=== PATIENT | male | born 1955 | race African-American/Black ===

== ENCOUNTER 2022-11-27 08:41 | Day surgery (SDC) | payer MEDICARE ==
[2022-11-27 09:04] LABS: Red Blood Cell (RBC) Count 4.59 mill/uL (4.70-6.10); White Blood Cell (WBC) Count 4.4 10x3/uL (4.8-10.8)
[2022-11-27 09:05] LABS: #Monocytes 0.6 thou/uL (0.11-0.59); #Neutrophils 2.7 thou/uL (1.40-6.50); %Basophils 0.5 % (0.0-1.0); %Eosinophils 0.5 % (0.0-10.0); %Lymphocytes 25.7 % (21.0-51.0); %Monocytes 12.5 % (0.0-10.0); %Neutrophils 60.8 % (42.0-75.0); Mean Corpuscular HGB CONC 33.7 g/dL (32.0-36.0); Mean Corpuscular Hemoglobin 30.5 pg (27.0-31.0); Mean Corpuscular Volume 90.6 fl (78.0-98.0); Mean Platelet Volume 8.9 fL (7.4-10.4); Platelet Count 354 10x3/uL (130-400)
[2022-11-27 09:09] LABS: Prothrombin Time 13.8 sec (12.0-14.7)
[2022-11-27 09:31] VITALS: TEMP 96.7; BMI 18.5
== END 2022-11-27 10:00 | disposition home or self-care (01) ==
LOC: CT 08:41
PROVIDERS: ATTEND Internal Medicine
DX: Z12.5 Encounter for screening for malignant neoplasm of prostate (principal); Z53.9 Procedure and treatment not carried out, unspecified reason; C25.3 Malignant neoplasm of pancreatic duct; C64.1 Malignant neoplasm of right kidney, except renal pelvis; I10 Essential (primary) hypertension; R97.8 Other abnormal tumor markers; R91.1 Solitary pulmonary nodule
CPT/HCPCS: 85025; 85610; 85730

== ENCOUNTER → 2022-12-14 | Day surgery (SDC) | payer MEDICARE ==
[2022-12-14 09:00] VITALS: BP 153/82; TEMP 97.6
== END ==
LOC: CT 08:16
PROVIDERS: ATTEND Internal Medicine
DX: C25.3 Malignant neoplasm of pancreatic duct (principal); C64.1 Malignant neoplasm of right kidney, except renal pelvis; R97.8 Other abnormal tumor markers; Z12.5 Encounter for screening for malignant neoplasm of prostate
CPT/HCPCS: 50200; 77002; 88305; 88333

== ENCOUNTER 2023-01-02 07:52 | Day surgery (SDC) | payer MEDICARE ==
[2023-01-01 09:54] VITALS: BMI 16.8
[2023-01-02] MEDS ORDERED: Lidocaine 1% PF 5 ML VIAL ONE (09:17)
[2023-01-02] MEDS ORDERED: PROPOFOL 200 MG/20 ML VIAL ONE (09:17)
[2023-01-02] MEDS ORDERED: PHENYLEPHRINE-NS 100 MCG/ML 10 ML SYRINGE ONE (09:17)
== END 2023-01-02 11:00 | disposition home or self-care (01) ==
LOC: SDC 07:52
PROVIDERS: ATTEND Internal Medicine Gastroenterology
PROC: 0DBM8ZZ Excision of Descending Colon, Via Natural or Artificial Opening Endoscopic (ICD-10-PCS; principal; 2023-01-02)
PROC: 0DBL8ZZ Excision of Transverse Colon, Via Natural or Artificial Opening Endoscopic (ICD-10-PCS; 2023-01-02)
PROC: 0DBN8ZZ Excision of Sigmoid Colon, Via Natural or Artificial Opening Endoscopic (ICD-10-PCS; 2023-01-02)
DX: D12.3 Benign neoplasm of transverse colon (principal); D12.4 Benign neoplasm of descending colon; D12.5 Benign neoplasm of sigmoid colon; D12.7 Benign neoplasm of rectosigmoid junction; C25.9 Malignant neoplasm of pancreas, unspecified; I10 Essential (primary) hypertension; C64.9 Malignant neoplasm of unspecified kidney, except renal pelvis; D3A.090 Benign carcinoid tumor of the bronchus and lung; Z79.899 Other long term (current) drug therapy
CPT/HCPCS: 88305; J2704

== ENCOUNTER 2023-02-14 13:33 | Day surgery (SDC) | payer MEDICARE ==
[2023-02-14] MEDS ORDERED: diphenhydrAMINE 25 MG CAP PO SCH (14:00)
[2023-02-14] MEDS ORDERED: Acetaminophen 500 MG TAB PO SCH (14:00)
[2023-02-14] MEDS ORDERED: diphenhydrAMINE 25 MG CAP ONE (14:19)
[2023-02-14] MEDS ORDERED: Acetaminophen 500 MG TAB ONE (14:19)
[2023-02-14 17:26] VITALS: BP 159/79; TEMP 97.9
== END 2023-02-14 17:25 | disposition home or self-care (01) ==
LOC: ONC/OP 13:33
PROVIDERS: ATTEND Internal Medicine
DX: D64.9 Anemia, unspecified (principal); D69.6 Thrombocytopenia, unspecified
CPT/HCPCS: 36430; 86850; 86900; 86901; 86920; P9016; J1642

== ENCOUNTER 2023-03-29 09:58 | Outpatient (CLI) | payer MEDICARE ==
[2023-03-29] MEDS ORDERED: Iopamidol 370 76% 100 ML VIAL ONE (14:05)
== END 2023-03-29 09:59 | disposition home or self-care (01) ==
LOC: BICCT 09:58
PROVIDERS: ATTEND Internal Medicine
DX: C25.3 Malignant neoplasm of pancreatic duct (principal); N28.89 Other specified disorders of kidney and ureter; K76.9 Liver disease, unspecified; J98.09 Other diseases of bronchus, not elsewhere classified; R91.8 Other nonspecific abnormal finding of lung field
CPT/HCPCS: 71260

== ENCOUNTER 2023-06-22 21:07 | Inpatient (IN) | payer MEDICARE ==
[2023-06-23] MEDS ORDERED: Dextrose 10% in Water 1,000 ML IV SCH (01:15)
[2023-06-23] MEDS ORDERED: Acetaminophen 650 MG Suppository PR PRN (01:16)
[2023-06-23] MEDS ORDERED: Ondansetron ODT 4 MG TAB PO PRN (01:16)
[2023-06-23] MEDS ORDERED: Ondansetron PF 4 MG/2 ML Vial IVP PRN (01:16)
[2023-06-23] MEDS ORDERED: Dextrose 50% Abboject 50 ML SYRINGE SLOW IVP SCH (01:30)
[2023-06-23 03:04] VITALS: BMI 14.9
[2023-06-23] MEDS ORDERED: Glucagon 1 MG/ML KIT IM PRN (03:55)
[2023-06-23] MEDS ORDERED: Dextrose 50% Abboject 50 ML SYRINGE SLOW IVP PRN (03:55)
[2023-06-23] MEDS ORDERED: Dextrose 5% in Water 1,000 ML IV PRN (03:55)
[2023-06-23] MEDS ORDERED: Electrolyte Replacement Protocol 1 EACH FS PRN (04:15)
[2023-06-23] MEDS: Sodium Chloride 0.9% 1,000 ML IV SCH ×2 (05:45→14:43)
[2023-06-23 06:44] LABS: #Monocytes 0.3 thou/uL (0.11-0.59); #Neutrophils 13.9 thou/uL (1.40-6.50); %Basophils 0.1 % (0.0-1.0); %Lymphocytes 2.2 % (21.0-51.0); Hematocrit 22.5 % (42.0-52.0); Hemoglobin 7.6 g/dL (14.0-18.0); Mean Corpuscular HGB CONC 33.8 g/dL (32.0-36.0); Mean Corpuscular Hemoglobin 34.2 pg (27.0-31.0); Mean Corpuscular Volume 101.4 fl (78.0-98.0); Mean Platelet Volume 12.2 fL (7.4-10.4); Red Blood Cell (RBC) Count 2.22 mill/uL (4.70-6.10); White Blood Cell (WBC) Count 14.8 10x3/uL (4.8-10.8)
[2023-06-23 07:06] LABS: Anion Gap 13 mmol/L (10-20); BUN (Urea Nitrogen) 51 mg/dL (8.4-25.7); Calc. Creatinine Clearance 72 mL/min (70-130); Calcium 7.5 mg/dL (7.8-10.44); Carbon Dioxide 21 mmol/L (23-31); Chloride 98 mmol/L (98-107); Estimated GFR 100; Glucose 139 mg/dL (80-115); Potassium 3.9 mmol/L (3.5-5.1); Sodium 128 mmol/L (136-145)
[2023-06-23 07:09] LABS: Magnesium 1.7 mg/dL (1.6-2.6); Phosphorus 3.2 mg/dL (2.3-4.7)
[2023-06-23] MEDS ORDERED: hydrALAZINE 20 MG/ML VIAL SLOW IVP PRN (08:14)
[2023-06-23 08:18] LABS: Platelet Count 49 10x3/uL (130-400)
[2023-06-23] MEDS ORDERED: Enoxaparin 40 MG (0.4 mL) SYRINGE SC SCH (09:00)
[2023-06-23] MEDS ORDERED: Aspirin 81 mg Enteric Coated Tablet PO SCH (09:00)
[2023-06-23] MEDS ORDERED: Losartan 25 MG TAB PO SCH (09:00)
[2023-06-23] MEDS ORDERED: Magnesium 2 GM/50 ML(in water) 2 GM in Premix 1 BAG IVPB SCH (10:15)
[2023-06-23] MEDS: Rosuvastatin 20 MG TAB PO SCH (22:24)
[2023-06-24 07:14] LABS: Anion Gap 12 mmol/L (10-20); BUN (Urea Nitrogen) 30 mg/dL (8.4-25.7); Calc. Creatinine Clearance 102 mL/min (70-130); Calcium 7.3 mg/dL (7.8-10.44); Carbon Dioxide 19 mmol/L (23-31); Chloride 103 mmol/L (98-107); Estimated GFR 111; Glucose 78 mg/dL (80-115); Magnesium 1.8 mg/dL (1.6-2.6); Potassium 3.8 mmol/L (3.5-5.1); Sodium 130 mmol/L (136-145)
[2023-06-24 07:37] LABS: #Basophils 0.1 thou/uL (0.0-0.2); #Monocytes 0.3 thou/uL (0.11-0.59); #Neutrophils 17.8 thou/uL (1.40-6.50); %Basophils 0.3 % (0.0-1.0); %Eosinophils 0.1 % (0.0-10.0); %Lymphocytes 2.3 % (21.0-51.0); %Monocytes 1.6 % (0.0-10.0); %Neutrophils 94.6 % (42.0-75.0); Mean Corpuscular HGB CONC 32.9 g/dL (32.0-36.0); Mean Corpuscular Hemoglobin 33.6 pg (27.0-31.0); Mean Corpuscular Volume 102.3 fl (78.0-98.0); Mean Platelet Volume 11.9 fL (7.4-10.4); RBC Distribution Width 14.4 % (11.5-14.5); Red Blood Cell (RBC) Count 3.45 mill/uL (4.70-6.10); White Blood Cell (WBC) Count 18.9 10x3/uL (4.8-10.8)
[2023-06-24 07:45] LABS: Platelet Count 32 10x3/uL (130-400)
[2023-06-24 08:00] LABS: Hematocrit 35.3 % (42.0-52.0); Hemoglobin 11.6 g/dL (14.0-18.0)
[2023-06-24] MEDS ORDERED: Magnesium 2 GM/50 ML(in water) 2 GM in Premix 1 BAG IVPB SCH (08:15)
[2023-06-24] MEDS: Dextrose 5%-Lactated Ringers 1,000 ML IV SCH (15:05)
[2023-06-24] MEDS: Cefepime 2 GM in Sodium Chloride 0.9% 100 ML IVPB SCH (15:05)
[2023-06-24 17:01] LABS: Bacteria/HPF None Seen HPF (None Seen); Bilirubin Negative (Negative); Blood, Urine 1+ (Negative); CAUTI Indications for Culture Alt mental st,lethar; Clarity Clear (Clear); Glucose, Urine (Dipstick) 300 mg/dL (Negative); Ketone, Urine Negative (Negative); Leukocyte Negative Leu/uL (Negative); Nitrite Negative (Negative); Protein, Urine (Dipstick) Negative (Neg-Trace); RBC/HPF None Seen HPF (0-3); Specific Gravity, Urine 1.019 (1.002-1.036); Squamous Epithelial None Seen HPF (0-3); Urobilinogen Normal mg/dL (Less than 2); WBC/HPF 0-3 HPF (0-3); pH, Urine 5.5 (5.0-9.0)
[2023-06-24 17:03] LABS: Urine Culture Reflex No No
[2023-06-24] MEDS: Acetaminophen 325 MG TAB PO PRN (18:28)
[2023-06-24] MEDS: Rosuvastatin 20 MG TAB PO SCH (21:55)
[2023-06-25] MEDS: Cefepime 2 GM in Sodium Chloride 0.9% 100 ML IVPB SCH ×2 (03:18→16:31)
[2023-06-25 05:49] LABS: Anion Gap 13 mmol/L (10-20); BUN (Urea Nitrogen) 25 mg/dL (8.4-25.7); Calc. Creatinine Clearance 102 mL/min (70-130); Calcium 7.7 mg/dL (7.8-10.44); Carbon Dioxide 25 mmol/L (23-31); Chloride 99 mmol/L (98-107); Estimated GFR 111; Glucose 148 mg/dL (80-115); Magnesium 1.7 mg/dL (1.6-2.6); Potassium 3.3 mmol/L (3.5-5.1); Sodium 134 mmol/L (136-145)
[2023-06-25] MEDS ORDERED: Magnesium 2 GM/50 ML(in water) 2 GM in Premix 1 BAG IVPB SCH (06:00)
[2023-06-25] MEDS: Potassium Chloride 20 MEQ in Premix 1 BAG IVPB SCH ×2 (07:00→09:24)
[2023-06-25] MEDS: Dextrose 5%-Lactated Ringers 1,000 ML IV SCH ×3 (07:00→21:14)
[2023-06-25 08:26] LABS: #Monocytes 0.3 thou/uL (0.11-0.59); #Neutrophils 11.3 thou/uL (1.40-6.50); %Basophils 0.1 % (0.0-1.0); %Lymphocytes 2.7 % (21.0-51.0); %Monocytes 2.1 % (0.0-10.0); %Neutrophils 94.3 % (42.0-75.0); Mean Corpuscular HGB CONC 34.5 g/dL (32.0-36.0); Mean Corpuscular Hemoglobin 34.3 pg (27.0-31.0); Mean Corpuscular Volume 99.4 fl (78.0-98.0); Mean Platelet Volume 12.1 fL (7.4-10.4); RBC Distribution Width 13.6 % (11.5-14.5); Red Blood Cell (RBC) Count 1.78 mill/uL (4.70-6.10); White Blood Cell (WBC) Count 11.9 10x3/uL (4.8-10.8)
[2023-06-25 08:28] LABS: Platelet Count 34 10x3/uL (130-400)
[2023-06-25 08:32] LABS: Hemoglobin 6.1 g/dL (14.0-18.0)
[2023-06-25 08:33] LABS: Hematocrit 17.7 % (42.0-52.0)
[2023-06-25 15:01] LABS: #Monocytes 0.2 thou/uL (0.11-0.59); #Neutrophils 11.7 thou/uL (1.40-6.50); %Basophils 0.1 % (0.0-1.0); %Lymphocytes 2.2 % (21.0-51.0); %Monocytes 1.9 % (0.0-10.0); %Neutrophils 94.7 % (42.0-75.0); Hematocrit 22.5 % (42.0-52.0); Mean Corpuscular HGB CONC 31.1 g/dL (32.0-36.0); Mean Corpuscular Hemoglobin 33.8 pg (27.0-31.0); Mean Platelet Volume 12.7 fL (7.4-10.4); RBC Distribution Width 13.8 % (11.5-14.5); Red Blood Cell (RBC) Count 2.07 mill/uL (4.70-6.10); White Blood Cell (WBC) Count 12.4 10x3/uL (4.8-10.8)
[2023-06-25 15:08] LABS: Platelet Count 45 10x3/uL (130-400)
[2023-06-25 15:09] LABS: Mean Corpuscular Volume 108.7 fl (78.0-98.0)
[2023-06-25] MEDS ORDERED: Megestrol Acetate 400 MG/10 ML UDCUP PO SCH (16:30)
[2023-06-25] MEDS ORDERED: Megestrol Acetate 800 MG/20 ML UDCUP PO SCH (16:45)
[2023-06-25] MEDS: Rosuvastatin 20 MG TAB PO SCH (21:14)
[2023-06-25] MEDS: Mirtazapine 15 MG TAB PO SCH (21:14)
[2023-06-26] MEDS: Cefepime 2 GM in Sodium Chloride 0.9% 100 ML IVPB SCH ×2 (03:19→15:38)
[2023-06-26 06:14] LABS: #Monocytes 0.4 thou/uL (0.11-0.59); #Neutrophils 15.2 thou/uL (1.40-6.50); %Basophils 0.1 % (0.0-1.0); %Lymphocytes 2.4 % (21.0-51.0); %Monocytes 2.3 % (0.0-10.0); %Neutrophils 94.1 % (42.0-75.0); Hematocrit 22.5 % (42.0-52.0); Hemoglobin 7.7 g/dL (14.0-18.0); Mean Corpuscular HGB CONC 34.2 g/dL (32.0-36.0); Mean Corpuscular Hemoglobin 32.5 pg (27.0-31.0); Mean Platelet Volume 12.4 fL (7.4-10.4); RBC Distribution Width 16.3 % (11.5-14.5); Red Blood Cell (RBC) Count 2.37 mill/uL (4.70-6.10); White Blood Cell (WBC) Count 16.2 10x3/uL (4.8-10.8)
[2023-06-26 06:21] LABS: Mean Corpuscular Volume 94.9 fl (78.0-98.0); Platelet Count 33 10x3/uL (130-400)
[2023-06-26 06:39] LABS: ALT (SGPT) 131 U/L (8-55); AST (SGOT) 152 U/L (5-34); Albumin 2.8 g/dL (3.4-4.8); Alkaline Phosphatase 265 U/L (40-110); Anion Gap 9 mmol/L (10-20); BUN (Urea Nitrogen) 19 mg/dL (8.4-25.7); Bilirubin, Total 1.7 mg/dL (0.2-1.2); Calc. Creatinine Clearance 117 mL/min (70-130); Calcium 7.7 mg/dL (7.8-10.44); Carbon Dioxide 29 mmol/L (23-31); Chloride 100 mmol/L (98-107); Estimated GFR 115; Globulin 1.6 g/dL (2.4-3.5); Glucose 143 mg/dL (80-115); Potassium 3.6 mmol/L (3.5-5.1); Protein, Total 4.4 g/dL (5.8-8.1); Sodium 134 mmol/L (136-145)
[2023-06-26] MEDS: Megestrol Acetate 800 MG/20 ML UDCUP PO SCH (08:59)
[2023-06-26] MEDS: Cyanocobalamin (Vitamin B-12) 1,000 MCG TAB PO SCH (08:59)
[2023-06-26] MEDS ORDERED: Iopamidol 370 76% 100 ML VIAL ONE (13:12)
[2023-06-26] MEDS: Acetaminophen 325 MG TAB PO PRN (15:49)
[2023-06-26] MEDS: Dextrose 5%-Lactated Ringers 1,000 ML IV SCH (16:33)
[2023-06-26] MEDS: Mirtazapine 15 MG TAB PO SCH (21:27)
[2023-06-26] MEDS: Rosuvastatin 20 MG TAB PO SCH (21:27)
[2023-06-27] MEDS: Cefepime 2 GM in Sodium Chloride 0.9% 100 ML IVPB SCH ×2 (03:47→15:14)
[2023-06-27] MEDS: Dextrose 5%-Lactated Ringers 1,000 ML IV SCH (03:51)
[2023-06-27 06:47] LABS: #Monocytes 0.6 thou/uL (0.11-0.59); #Neutrophils 13.1 thou/uL (1.40-6.50); %Basophils 0.1 % (0.0-1.0); %Lymphocytes 3.2 % (21.0-51.0); %Monocytes 3.9 % (0.0-10.0); Hematocrit 22.4 % (42.0-52.0); Hemoglobin 7.7 g/dL (14.0-18.0); Mean Corpuscular HGB CONC 34.4 g/dL (32.0-36.0); Mean Corpuscular Hemoglobin 32.6 pg (27.0-31.0); Mean Corpuscular Volume 94.9 fl (78.0-98.0); Mean Platelet Volume 12.4 fL (7.4-10.4); RBC Distribution Width 16.2 % (11.5-14.5); Red Blood Cell (RBC) Count 2.36 mill/uL (4.70-6.10); White Blood Cell (WBC) Count 14.3 10x3/uL (4.8-10.8)
[2023-06-27 07:12] LABS: Platelet Count 31 10x3/uL (130-400)
[2023-06-27 07:16] LABS: ALT (SGPT) 104 U/L (8-55); AST (SGOT) 91 U/L (5-34); Albumin 2.6 g/dL (3.4-4.8); Alkaline Phosphatase 221 U/L (40-110); BUN (Urea Nitrogen) 14 mg/dL (8.4-25.7); Bilirubin, Total 1.6 mg/dL (0.2-1.2); Calc. Creatinine Clearance 119 mL/min (70-130); Calcium 7.5 mg/dL (7.8-10.44); Carbon Dioxide 26 mmol/L (23-31); Chloride 100 mmol/L (98-107); Estimated GFR 116; Globulin 1.7 g/dL (2.4-3.5); Glucose 103 mg/dL (80-115); Potassium 3.4 mmol/L (3.5-5.1); Protein, Total 4.3 g/dL (5.8-8.1); Sodium 133 mmol/L (136-145)
[2023-06-27 07:59] LABS: Anion Gap 10 mmol/L (10-20)
[2023-06-27] MEDS: Famotidine 20 MG TAB PO SCH (09:30)
[2023-06-27] MEDS: Megestrol Acetate 800 MG/20 ML UDCUP PO SCH (09:30)
[2023-06-27] MEDS: Cyanocobalamin (Vitamin B-12) 1,000 MCG TAB PO SCH (09:30)
[2023-06-27] MEDS: Dexamethasone 1 MG TAB PO SCH (09:30)
[2023-06-27] MEDS ORDERED: Potassium Chloride 20 MEQ TAB PO SCH (13:15)
[2023-06-27] MEDS: Mirtazapine 15 MG TAB PO SCH (20:54)
[2023-06-27] MEDS: Rosuvastatin 20 MG TAB PO SCH (20:54)
[2023-06-28 05:46] LABS: #Monocytes 0.7 thou/uL (0.11-0.59); #Neutrophils 10.9 thou/uL (1.40-6.50); %Basophils 0.1 % (0.0-1.0); %Lymphocytes 2.9 % (21.0-51.0); %Monocytes 5.9 % (0.0-10.0); %Neutrophils 90.5 % (42.0-75.0); Hematocrit 18.7 % (42.0-52.0); Hemoglobin 6.4 g/dL (14.0-18.0); Mean Corpuscular HGB CONC 34.2 g/dL (32.0-36.0); Mean Corpuscular Hemoglobin 32.7 pg (27.0-31.0); Mean Corpuscular Volume 95.4 fl (78.0-98.0); Mean Platelet Volume 12.5 fL (7.4-10.4); RBC Distribution Width 15.7 % (11.5-14.5); Red Blood Cell (RBC) Count 1.96 mill/uL (4.70-6.10)
[2023-06-28 05:59] LABS: Platelet Count 33 10x3/uL (130-400)
[2023-06-28 06:03] LABS: ALT (SGPT) 95 U/L (8-55); AST (SGOT) 83 U/L (5-34); Albumin 2.6 g/dL (3.4-4.8); Alkaline Phosphatase 192 U/L (40-110); Anion Gap 6 mmol/L (10-20); BUN (Urea Nitrogen) 13 mg/dL (8.4-25.7); Bilirubin, Total 1.3 mg/dL (0.2-1.2); Calc. Creatinine Clearance 125 mL/min (70-130); Calcium 7.5 mg/dL (7.8-10.44); Carbon Dioxide 31 mmol/L (23-31); Chloride 98 mmol/L (98-107); Estimated GFR 118; Globulin 1.8 g/dL (2.4-3.5); Glucose 92 mg/dL (80-115); Potassium 4.1 mmol/L (3.5-5.1); Protein, Total 4.4 g/dL (5.8-8.1); Sodium 131 mmol/L (136-145)
[2023-06-28] MEDS: Megestrol Acetate 800 MG/20 ML UDCUP PO SCH (09:36)
[2023-06-28] MEDS: Cyanocobalamin (Vitamin B-12) 1,000 MCG TAB PO SCH (09:36)
[2023-06-28] MEDS: Famotidine 20 MG TAB PO SCH (09:36)
[2023-06-28] MEDS: Dexamethasone 1 MG TAB PO SCH (09:36)
[2023-06-28] MEDS: Rosuvastatin 20 MG TAB PO SCH (21:32)
[2023-06-28] MEDS: Mirtazapine 15 MG TAB PO SCH (21:32)
[2023-06-29 08:18] LABS: Hematocrit 28.5 % (42.0-52.0); Hemoglobin 9.6 g/dL (14.0-18.0)
[2023-06-29] MEDS: Cyanocobalamin (Vitamin B-12) 1,000 MCG TAB PO SCH (09:20)
[2023-06-29] MEDS: Dexamethasone 1 MG TAB PO SCH (09:20)
[2023-06-29] MEDS: Megestrol Acetate 800 MG/20 ML UDCUP PO SCH (09:20)
[2023-06-29] MEDS: Famotidine 20 MG TAB PO SCH (09:20)
[2023-06-29 14:38] LABS: Anion Gap 12 mmol/L (10-20); BUN (Urea Nitrogen) 15 mg/dL (8.4-25.7); Calc. Creatinine Clearance 119 mL/min (70-130); Calcium 7.6 mg/dL (7.8-10.44); Carbon Dioxide 23 mmol/L (23-31); Chloride 97 mmol/L (98-107); Estimated GFR 116; Glucose 126 mg/dL (80-115); Potassium 5.1 mmol/L (3.5-5.1); Sodium 127 mmol/L (136-145)
[2023-06-29] MEDS ORDERED: Sodium Chloride 0.9% 1,000 ML IV SCH (15:30)
[2023-06-29] MEDS: Acetaminophen 325 MG TAB PO PRN ×2 (17:14→21:14)
[2023-06-29] MEDS: Rosuvastatin 20 MG TAB PO SCH (21:13)
[2023-06-29] MEDS: Mirtazapine 15 MG TAB PO SCH (21:15)
[2023-06-30] MEDS: Dexamethasone 1 MG TAB PO SCH (08:26)
[2023-06-30] MEDS: Megestrol Acetate 800 MG/20 ML UDCUP PO SCH (08:26)
[2023-06-30] MEDS: Famotidine 20 MG TAB PO SCH (08:27)
[2023-06-30] MEDS: Cyanocobalamin (Vitamin B-12) 1,000 MCG TAB PO SCH (08:27)
[2023-06-30 09:57] LABS: #Monocytes 0.9 thou/uL (0.11-0.59); #Neutrophils 8.5 thou/uL (1.40-6.50); %Basophils 0.1 % (0.0-1.0); %Lymphocytes 4.6 % (21.0-51.0); %Monocytes 8.9 % (0.0-10.0); %Neutrophils 85.8 % (42.0-75.0); Hematocrit 32.8 % (42.0-52.0); Hemoglobin 10.8 g/dL (14.0-18.0); Mean Corpuscular HGB CONC 32.9 g/dL (32.0-36.0); Mean Corpuscular Hemoglobin 31.4 pg (27.0-31.0); Mean Corpuscular Volume 95.3 fl (78.0-98.0); RBC Distribution Width 16.6 % (11.5-14.5); Red Blood Cell (RBC) Count 3.44 mill/uL (4.70-6.10); White Blood Cell (WBC) Count 9.9 10x3/uL (4.8-10.8)
[2023-06-30 10:09] LABS: Platelet Count 48 10x3/uL (130-400)
[2023-06-30 10:32] LABS: Anion Gap 12 mmol/L (10-20); BUN (Urea Nitrogen) 13 mg/dL (8.4-25.7); Calc. Creatinine Clearance 125 mL/min (70-130); Calcium 7.6 mg/dL (7.8-10.44); Carbon Dioxide 24 mmol/L (23-31); Chloride 96 mmol/L (98-107); Estimated GFR 118; Glucose 83 mg/dL (80-115); Potassium 4.8 mmol/L (3.5-5.1); Sodium 127 mmol/L (136-145)
[2023-06-30 11:42] LABS: Anion Gap 10 mmol/L (10-20); BUN (Urea Nitrogen) 14 mg/dL (8.4-25.7); Calc. Creatinine Clearance 119 mL/min (70-130); Calcium 7.6 mg/dL (7.8-10.44); Carbon Dioxide 27 mmol/L (23-31); Chloride 93 mmol/L (98-107); Estimated GFR 116; Glucose 99 mg/dL (80-115); Potassium 4.4 mmol/L (3.5-5.1); Sodium 126 mmol/L (136-145)
[2023-06-30] MEDS: Acetaminophen 325 MG TAB PO PRN (18:09)
[2023-06-30] MEDS: Rosuvastatin 20 MG TAB PO SCH (21:08)
[2023-06-30] MEDS: Mirtazapine 15 MG TAB PO SCH (21:08)
[2023-07-01] MEDS ORDERED: Benzonatate 100 MG CAP PO PRN (01:22)
[2023-07-01] MEDS ORDERED: GUAIFENESIN SF SOLN 200 MG/10 ML UDCUP PO PRN (01:22)
[2023-07-01 06:35] LABS: #Neutrophils 10.6 thou/uL (1.40-6.50); %Basophils 0.2 % (0.0-1.0); %Lymphocytes 4.2 % (21.0-51.0); %Monocytes 7.9 % (0.0-10.0); %Neutrophils 87.3 % (42.0-75.0); Hematocrit 28.9 % (42.0-52.0); Hemoglobin 10.1 g/dL (14.0-18.0); Mean Corpuscular HGB CONC 34.9 g/dL (32.0-36.0); Mean Corpuscular Hemoglobin 31.8 pg (27.0-31.0); Mean Platelet Volume 11.1 fL (7.4-10.4); RBC Distribution Width 15.8 % (11.5-14.5); Red Blood Cell (RBC) Count 3.18 mill/uL (4.70-6.10); White Blood Cell (WBC) Count 12.1 10x3/uL (4.8-10.8)
[2023-07-01 06:39] LABS: Mean Corpuscular Volume 90.9 fl (78.0-98.0); Platelet Count 65 10x3/uL (130-400)
[2023-07-01 06:49] LABS: ALT (SGPT) 85 U/L (8-55); AST (SGOT) 66 U/L (5-34); Albumin 2.6 g/dL (3.4-4.8); Alkaline Phosphatase 170 U/L (40-110); Anion Gap 8 mmol/L (10-20); BUN (Urea Nitrogen) 31 mg/dL (8.4-25.7); Bilirubin, Total 0.9 mg/dL (0.2-1.2); Calc. Creatinine Clearance 125 mL/min (70-130); Calcium 7.8 mg/dL (7.8-10.44); Carbon Dioxide 28 mmol/L (23-31); Chloride 94 mmol/L (98-107); Estimated GFR 118; Globulin 2.1 g/dL (2.4-3.5); Glucose 118 mg/dL (80-115); Potassium 4.5 mmol/L (3.5-5.1); Protein, Total 4.7 g/dL (5.8-8.1); Sodium 125 mmol/L (136-145)
[2023-07-01] MEDS: Dexamethasone 1 MG TAB PO SCH (08:56)
[2023-07-01] MEDS: Famotidine 20 MG TAB PO SCH (08:56)
[2023-07-01] MEDS: Cyanocobalamin (Vitamin B-12) 1,000 MCG TAB PO SCH (08:56)
[2023-07-01] MEDS: Megestrol Acetate 800 MG/20 ML UDCUP PO SCH (08:56)
[2023-07-01 19:37] LABS: Anion Gap 8 mmol/L (10-20); BUN (Urea Nitrogen) 20 mg/dL (8.4-25.7); Calc. Creatinine Clearance 134 mL/min (70-130); Calcium 7.7 mg/dL (7.8-10.44); Carbon Dioxide 28 mmol/L (23-31); Chloride 92 mmol/L (98-107); Estimated GFR 120; Glucose 91 mg/dL (80-115); Potassium 4.1 mmol/L (3.5-5.1); Sodium 124 mmol/L (136-145)
[2023-07-01] MEDS: Mirtazapine 15 MG TAB PO SCH (20:13)
[2023-07-01] MEDS: Rosuvastatin 20 MG TAB PO SCH (20:13)
[2023-07-01] MEDS: Sodium Chloride 1 GM TAB PO SCH (21:49)
[2023-07-02 05:32] LABS: #Monocytes 0.9 thou/uL (0.11-0.59); #Neutrophils 9.4 thou/uL (1.40-6.50); %Basophils 0.1 % (0.0-1.0); %Lymphocytes 3.6 % (21.0-51.0); %Monocytes 8.2 % (0.0-10.0); %Neutrophils 87.8 % (42.0-75.0); Hemoglobin 9.6 g/dL (14.0-18.0); Mean Corpuscular HGB CONC 34.3 g/dL (32.0-36.0); Mean Corpuscular Hemoglobin 30.6 pg (27.0-31.0); Mean Corpuscular Volume 89.2 fl (78.0-98.0); Mean Platelet Volume 11.2 fL (7.4-10.4); RBC Distribution Width 15.3 % (11.5-14.5); Red Blood Cell (RBC) Count 3.14 mill/uL (4.70-6.10); White Blood Cell (WBC) Count 10.7 10x3/uL (4.8-10.8)
[2023-07-02 05:39] LABS: Platelet Count 70 10x3/uL (130-400)
[2023-07-02 05:59] LABS: ALT (SGPT) 79 U/L (8-55); AST (SGOT) 55 U/L (5-34); Albumin 2.6 g/dL (3.4-4.8); Alkaline Phosphatase 161 U/L (40-110); Anion Gap 9 mmol/L (10-20); BUN (Urea Nitrogen) 22 mg/dL (8.4-25.7); Bilirubin, Total 0.6 mg/dL (0.2-1.2); Calc. Creatinine Clearance 108 mL/min (70-130); Calcium 7.7 mg/dL (7.8-10.44); Carbon Dioxide 27 mmol/L (23-31); Chloride 93 mmol/L (98-107); Estimated GFR 113; Globulin 2.1 g/dL (2.4-3.5); Glucose 121 mg/dL (80-115); Potassium 4.1 mmol/L (3.5-5.1); Protein, Total 4.7 g/dL (5.8-8.1); Sodium 125 mmol/L (136-145)
[2023-07-02] MEDS: Cyanocobalamin (Vitamin B-12) 1,000 MCG TAB PO SCH (09:17)
[2023-07-02] MEDS: Dexamethasone 1 MG TAB PO SCH (09:17)
[2023-07-02] MEDS: Sodium Chloride 1 GM TAB PO SCH ×3 (09:17→20:06)
[2023-07-02] MEDS: Megestrol Acetate 800 MG/20 ML UDCUP PO SCH (09:18)
[2023-07-02] MEDS: Famotidine 20 MG TAB PO SCH ×2 (09:18→20:06)
[2023-07-02] MEDS: Acetaminophen 325 MG TAB PO PRN ×2 (15:35→20:07)
[2023-07-02] MEDS: Mirtazapine 15 MG TAB PO SCH (20:06)
[2023-07-02] MEDS: Rosuvastatin 20 MG TAB PO SCH (20:06)
[2023-07-03] MEDS: Megestrol Acetate 800 MG/20 ML UDCUP PO SCH (08:10)
[2023-07-03] MEDS: Famotidine 20 MG TAB PO SCH (08:10)
[2023-07-03] MEDS: Sodium Chloride 1 GM TAB PO SCH (08:10)
[2023-07-03] MEDS: Cyanocobalamin (Vitamin B-12) 1,000 MCG TAB PO SCH (08:10)
[2023-07-03] MEDS: Dexamethasone 1 MG TAB PO SCH (08:10)
[2023-07-03 09:24] LABS: #Neutrophils 9.5 thou/uL (1.40-6.50); %Basophils 0.1 % (0.0-1.0); %Eosinophils 0.2 % (0.0-10.0); %Monocytes 9.1 % (0.0-10.0); %Neutrophils 86.8 % (42.0-75.0); Hematocrit 25.5 % (42.0-52.0); Hemoglobin 8.8 g/dL (14.0-18.0); Mean Corpuscular HGB CONC 34.5 g/dL (32.0-36.0); Mean Corpuscular Hemoglobin 31.3 pg (27.0-31.0); Mean Corpuscular Volume 90.7 fl (78.0-98.0); Mean Platelet Volume 11.2 fL (7.4-10.4); RBC Distribution Width 15.3 % (11.5-14.5); Red Blood Cell (RBC) Count 2.81 mill/uL (4.70-6.10)
[2023-07-03 09:31] LABS: Platelet Count 76 10x3/uL (130-400)
[2023-07-03 10:01] LABS: ALT (SGPT) 107 U/L (8-55); AST (SGOT) 89 U/L (5-34); Albumin 2.6 g/dL (3.4-4.8); Alkaline Phosphatase 149 U/L (40-110); Anion Gap 10 mmol/L (10-20); BUN (Urea Nitrogen) 15 mg/dL (8.4-25.7); Bilirubin, Total 0.5 mg/dL (0.2-1.2); Calc. Creatinine Clearance 125 mL/min (70-130); Calcium 7.5 mg/dL (7.8-10.44); Carbon Dioxide 26 mmol/L (23-31); Chloride 94 mmol/L (98-107); Estimated GFR 118; Glucose 153 mg/dL (80-115); Magnesium 1.2 mg/dL (1.6-2.6); Potassium 3.7 mmol/L (3.5-5.1); Protein, Total 4.6 g/dL (5.8-8.1); Sodium 126 mmol/L (136-145)
[2023-07-03 10:06] LABS: Critical Call Chemistry NUR.KAE AT 1005; Phosphorus 1.3 mg/dL (2.3-4.7)
[2023-07-03] MEDS ORDERED: PHOS-NAK 1 PKT PACK PER TUBE SCH (11:00)
[2023-07-03] MEDS ORDERED: Magnesium Sulfate In Water 4 GM in Premix 1 BAG IVPB SCH (11:00)
[2023-07-03 12:28] VITALS: BP 99/72; TEMP 98.1
[2023-07-03] MEDS ORDERED: Sodium Chloride 1 GM TAB PO SCH ×2 (15:45→21:00)
[2023-07-03] MEDS ORDERED: Potassium Phosphate 30 MMOL in Sodium Chloride 0.9% 250 ML 250 ML IVPB SCH (15:45)
== END 2023-07-03 16:21 | disposition left against medical advice (07) | DRG 640 ==
LOC: MSONC 23:14 → OBSVTOIN 06-24 14:00
PROVIDERS: ADMIT Student in an Organized Health Care Education/Training Program; ATTEND Family Medicine
PROC: 30233N1 Transfusion of Nonautologous Red Blood Cells into Peripheral Vein, Percutaneous Approach (ICD-10-PCS; principal; 2023-06-25)
DX: E16.2 Hypoglycemia, unspecified (principal); E43 Unspecified severe protein-calorie malnutrition; E22.2 Syndrome of inappropriate secretion of antidiuretic hormone; C25.9 Malignant neoplasm of pancreas, unspecified; C78.7 Secondary malignant neoplasm of liver and intrahepatic bile duct; R64 Cachexia; Z68.1 Body mass index [BMI] 19.9 or less, adult; C64.9 Malignant neoplasm of unspecified kidney, except renal pelvis; R53.1 Weakness; Z66 Do not resuscitate; Z51.5 Encounter for palliative care; E78.5 Hyperlipidemia, unspecified; I10 Essential (primary) hypertension; D64.9 Anemia, unspecified; D69.6 Thrombocytopenia, unspecified; D72.829 Elevated white blood cell count, unspecified; D3A.090 Benign carcinoid tumor of the bronchus and lung; D69.59 Other secondary thrombocytopenia; T45.1X5A Adverse effect of antineoplastic and immunosuppressive drugs, initial encounter; E83.42 Hypomagnesemia; E87.6 Hypokalemia; R53.81 Other malaise; Z79.82 Long term (current) use of aspirin; Z79.899 Other long term (current) drug therapy; Z98.890 Other specified postprocedural states; Z87.891 Personal history of nicotine dependence
CPT/HCPCS: 36415; 36416; 36430; 71260; 74018; 80048; 80053; 81001; 82533; 83735; 83930; 83935; 84100; 84443; 85014; 85018; 85025; 86850; 86900; 86901; 87040; 96365; 96375; 96376; G0378; J0692; J1642; J3475; J3480; J3490; J7050; J7999; J8540; P9016; Q9967

== ENCOUNTER 2023-07-05 21:54 | Inpatient (IN) | payer MEDICARE ==
[2023-07-05] MEDS ORDERED: Acetaminophen 650 MG Suppository PR PRN (23:24)
[2023-07-05] MEDS ORDERED: Acetaminophen 325 MG TAB PO PRN (23:24)
[2023-07-05] MEDS ORDERED: Glucagon 1 MG/ML KIT IM PRN (23:30)
[2023-07-05] MEDS ORDERED: Dextrose 50% Abboject 50 ML SYRINGE SLOW IVP PRN (23:30)
[2023-07-05] MEDS ORDERED: Dextrose 5% in Water 1,000 ML IV PRN (23:30)
[2023-07-05] MEDS: Dextrose 5%-Lactated Ringers 1,000 ML IV SCH (23:56)
[2023-07-06 01:22] VITALS: BMI 16.8
[2023-07-06 02:00] LABS: ALT (SGPT) 77 U/L (8-55); AST (SGOT) 51 U/L (5-34); Albumin 2.4 g/dL (3.4-4.8); Alkaline Phosphatase 124 U/L (40-110); Anion Gap 12 mmol/L (10-20); BUN (Urea Nitrogen) 14 mg/dL (8.4-25.7); Bilirubin, Total 0.6 mg/dL (0.2-1.2); Calc. Creatinine Clearance 138 mL/min (70-130); Calcium 7.2 mg/dL (7.8-10.44); Carbon Dioxide 22 mmol/L (23-31); Chloride 94 mmol/L (98-107); Estimated GFR 117; Glucose 80 mg/dL (80-115); Magnesium 1.6 mg/dL (1.6-2.6); Phosphorus 2.6 mg/dL (2.3-4.7); Potassium 4.5 mmol/L (3.5-5.1); Protein, Total 4.4 g/dL (5.8-8.1); Sodium 123 mmol/L (136-145)
[2023-07-06 07:03] LABS: #Eosinphils 0.1 thou/uL (0.0-0.7); #Monocytes 0.7 thou/uL (0.11-0.59); #Neutrophils 7.3 thou/uL (1.40-6.50); %Basophils 0.1 % (0.0-1.0); %Eosinophils 0.8 % (0.0-10.0); %Lymphocytes 4.8 % (21.0-51.0); %Monocytes 7.6 % (0.0-10.0); %Neutrophils 85.4 % (42.0-75.0); Hematocrit 26.4 % (42.0-52.0); Hemoglobin 8.8 g/dL (14.0-18.0); Mean Corpuscular HGB CONC 33.3 g/dL (32.0-36.0); Mean Corpuscular Hemoglobin 30.7 pg (27.0-31.0); Platelet Count 110 10x3/uL (130-400); RBC Distribution Width 15.6 % (11.5-14.5); Red Blood Cell (RBC) Count 2.87 mill/uL (4.70-6.10); White Blood Cell (WBC) Count 8.6 10x3/uL (4.8-10.8)
[2023-07-06 07:48] LABS: ALT (SGPT) 76 U/L (8-55); AST (SGOT) 55 U/L (5-34); Albumin 2.3 g/dL (3.4-4.8); Alkaline Phosphatase 126 U/L (40-110); Anion Gap 14 mmol/L (10-20); BUN (Urea Nitrogen) 12 mg/dL (8.4-25.7); Bilirubin, Total 0.7 mg/dL (0.2-1.2); Calc. Creatinine Clearance 141 mL/min (70-130); Calcium 7.2 mg/dL (7.8-10.44); Carbon Dioxide 20 mmol/L (23-31); Chloride 94 mmol/L (98-107); Estimated GFR 118; Globulin 2.2 g/dL (2.4-3.5); Glucose 77 mg/dL (80-115); Magnesium 1.6 mg/dL (1.6-2.6); Phosphorus 2.8 mg/dL (2.3-4.7); Potassium 4.5 mmol/L (3.5-5.1); Protein, Total 4.5 g/dL (5.8-8.1); Sodium 123 mmol/L (136-145)
[2023-07-06] MEDS: Megestrol Acetate 800 MG/20 ML UDCUP PO SCH (08:25)
[2023-07-06] MEDS: Dextrose 5%-Lactated Ringers 1,000 ML IV SCH ×3 (09:58→17:54)
[2023-07-06] MEDS: Mirtazapine 15 MG TAB PO SCH (20:58)
[2023-07-07] MEDS: Dextrose 5 % And 0.9 % NaCl 1,000 ML IV SCH ×4 (02:20→23:21)
[2023-07-07] MEDS ORDERED: Ondansetron PF 4 MG/2 ML Vial IVP PRN (02:49)
[2023-07-07 07:50] LABS: Anion Gap 16 mmol/L (10-20); BUN (Urea Nitrogen) 7 mg/dL (8.4-25.7); Calc. Creatinine Clearance 151 mL/min (70-130); Calcium 7.3 mg/dL (7.8-10.44); Carbon Dioxide 16 mmol/L (23-31); Chloride 98 mmol/L (98-107); Estimated GFR 120; Glucose 97 mg/dL (80-115); Potassium 4.2 mmol/L (3.5-5.1); Sodium 126 mmol/L (136-145)
[2023-07-07] MEDS: Megestrol Acetate 800 MG/20 ML UDCUP PO SCH (09:08)
[2023-07-07 09:22] LABS: #Eosinphils 0.1 thou/uL (0.0-0.7); #Monocytes 0.7 thou/uL (0.11-0.59); #Neutrophils 7.4 thou/uL (1.40-6.50); %Basophils 0.1 % (0.0-1.0); %Eosinophils 0.6 % (0.0-10.0); %Lymphocytes 4.3 % (21.0-51.0); %Monocytes 8.4 % (0.0-10.0); Hematocrit 29.2 % (42.0-52.0); Hemoglobin 9.8 g/dL (14.0-18.0); Mean Corpuscular HGB CONC 33.6 g/dL (32.0-36.0); Mean Corpuscular Hemoglobin 30.9 pg (27.0-31.0); Mean Corpuscular Volume 92.1 fl (78.0-98.0); Mean Platelet Volume 9.5 fL (7.4-10.4); Platelet Count 142 10x3/uL (130-400); RBC Distribution Width 15.5 % (11.5-14.5); Red Blood Cell (RBC) Count 3.17 mill/uL (4.70-6.10); White Blood Cell (WBC) Count 8.6 10x3/uL (4.8-10.8)
[2023-07-07] MEDS: Sodium Chloride 1 GM TAB PO SCH ×3 (13:17→21:11)
[2023-07-07] MEDS: Mirtazapine 15 MG TAB PO SCH (21:11)
[2023-07-08 07:29] LABS: ALT (SGPT) 78 U/L (8-55); AST (SGOT) 55 U/L (5-34); Albumin 2.2 g/dL (3.4-4.8); Alkaline Phosphatase 116 U/L (40-110); Anion Gap 8 mmol/L (10-20); BUN (Urea Nitrogen) 6 mg/dL (8.4-25.7); Bilirubin, Total 0.5 mg/dL (0.2-1.2); Calc. Creatinine Clearance 151 mL/min (70-130); Carbon Dioxide 23 mmol/L (23-31); Chloride 98 mmol/L (98-107); Estimated GFR 120; Globulin 1.9 g/dL (2.4-3.5); Glucose 81 mg/dL (80-115); Potassium 3.3 mmol/L (3.5-5.1); Protein, Total 4.1 g/dL (5.8-8.1); Sodium 126 mmol/L (136-145)
[2023-07-08 07:33] LABS: Calcium 6.6 mg/dL (7.8-10.44)
[2023-07-08] MEDS ORDERED: fentaNYL 50 mcg/mL 1 mL Vial ONE (09:04)
[2023-07-08] MEDS ORDERED: Lidocaine 1% PF 5 ML VIAL ONE (09:05)
[2023-07-08] MEDS ORDERED: PROPOFOL 20 ML ONE (09:05)
[2023-07-08] MEDS ORDERED: CEFAZOLIN 2 GM VIAL ONE (09:19)
[2023-07-08] MEDS ORDERED: Sodium Chloride 0.9% 100 ML ONE (09:20)
[2023-07-08] MEDS ORDERED: ePHEDrine Sulfate 50 MG/10 ML VIAL ONE (09:42)
[2023-07-08] MEDS ORDERED: PHENYLEPHRINE-NS 100 MCG/ML 10 ML SYRINGE ONE (09:42)
[2023-07-08] MEDS ORDERED: Lansoprazole 15 MG/5 ML (BATCHED)UDCUP PER TUBE SCH (11:00)
[2023-07-08] MEDS: Dextrose 5 % And 0.9 % NaCl 1,000 ML IV SCH ×2 (11:48→23:03)
[2023-07-08] MEDS: Megestrol Acetate 800 MG/20 ML UDCUP PO SCH (12:00)
[2023-07-08] MEDS: Sodium Chloride 1 GM TAB PO SCH ×3 (12:00→20:42)
[2023-07-08] MEDS ORDERED: Morphine 2 MG/ML VIAL SLOW IVP SCH (13:45)
[2023-07-08] MEDS: Morphine 2 MG/ML VIAL SLOW IVP PRN ×2 (18:02→23:04)
[2023-07-08] MEDS: Mirtazapine 15 MG TAB PO SCH (20:42)
[2023-07-09] MEDS: Morphine 2 MG/ML VIAL SLOW IVP PRN ×5 (03:38→23:28)
[2023-07-09 04:58] LABS: ALT (SGPT) 79 U/L (8-55); AST (SGOT) 57 U/L (5-34); Albumin 2.3 g/dL (3.4-4.8); Alkaline Phosphatase 124 U/L (40-110); Anion Gap 11 mmol/L (10-20); BUN (Urea Nitrogen) 10 mg/dL (8.4-25.7); Bilirubin, Total 0.5 mg/dL (0.2-1.2); Calc. Creatinine Clearance 138 mL/min (70-130); Carbon Dioxide 21 mmol/L (23-31); Chloride 99 mmol/L (98-107); Estimated GFR 117; Globulin 2.1 g/dL (2.4-3.5); Glucose 81 mg/dL (80-115); Potassium 3.3 mmol/L (3.5-5.1); Protein, Total 4.4 g/dL (5.8-8.1); Sodium 128 mmol/L (136-145)
[2023-07-09 05:07] LABS: Calcium 6.8 mg/dL (7.8-10.44); Critical Call Chemistry NUR.BCB@0504
[2023-07-09] MEDS: Sodium Chloride 1 GM TAB PO SCH ×3 (08:54→21:00)
[2023-07-09] MEDS: Lansoprazole 15 MG/5 ML (BATCHED)UDCUP PER TUBE SCH (08:54)
[2023-07-09] MEDS: Megestrol Acetate 800 MG/20 ML UDCUP PO SCH (08:54)
[2023-07-09] MEDS ORDERED: Iopamidol-370 76% 500 ML MDV (1 ML CHARGE) ONE (10:20)
[2023-07-09] MEDS: Dextrose 5 % And 0.9 % NaCl 1,000 ML IV SCH (12:48)
[2023-07-09] MEDS: Potassium Chloride 20 MEQ TAB PO SCH (17:14)
[2023-07-09] MEDS: Mirtazapine 15 MG TAB PO SCH (21:00)
[2023-07-09 21:40] LABS: #Eosinphils 0.1 thou/uL (0.0-0.7); #Monocytes 0.3 thou/uL (0.11-0.59); #Neutrophils 10.7 thou/uL (1.40-6.50); %Basophils 0.2 % (0.0-1.0); %Eosinophils 0.9 % (0.0-10.0); %Lymphocytes 2.5 % (21.0-51.0); %Monocytes 2.8 % (0.0-10.0); %Neutrophils 92.8 % (42.0-75.0); Hematocrit 24.2 % (42.0-52.0); Hemoglobin 8.5 g/dL (14.0-18.0); Mean Corpuscular HGB CONC 35.1 g/dL (32.0-36.0); Mean Corpuscular Hemoglobin 31.1 pg (27.0-31.0); Mean Corpuscular Volume 88.6 fl (78.0-98.0); Mean Platelet Volume 8.8 fL (7.4-10.4); Platelet Count 171 10x3/uL (130-400); RBC Distribution Width 15.7 % (11.5-14.5); Red Blood Cell (RBC) Count 2.73 mill/uL (4.70-6.10); White Blood Cell (WBC) Count 11.6 10x3/uL (4.8-10.8)
[2023-07-09 22:00] LABS: Anion Gap 9 mmol/L (10-20); BUN (Urea Nitrogen) 9 mg/dL (8.4-25.7); Calc. Creatinine Clearance 135 mL/min (70-130); Carbon Dioxide 23 mmol/L (23-31); Chloride 101 mmol/L (98-107); Estimated GFR 116; Glucose 148 mg/dL (80-115); Magnesium 1.3 mg/dL (1.6-2.6); Potassium 3.5 mmol/L (3.5-5.1); Sodium 129 mmol/L (136-145)
[2023-07-09 22:09] LABS: Calcium 6.8 mg/dL (7.8-10.44)
[2023-07-09] MEDS ORDERED: Magnesium 2 GM/50 ML(in water) 2 GM in Premix 1 BAG IVPB SCH (22:15)
[2023-07-09] MEDS ORDERED: Furosemide 40 MG (4 mL) VIAL SLOW IVP SCH (23:15)
[2023-07-10 00:04] LABS: Lactic Acid 2.2 mmol/L (0.5-2.2)
[2023-07-10] MEDS: Dextrose 5 % And 0.9 % NaCl 1,000 ML IV SCH (00:19)
[2023-07-10 00:31] LABS: Actual Bicarbonate (HCO3a) 22.9 mEq/L (22-28); Base Excess (BEa) 1.3 mEq/L (-2.0 to +3.0); Calcium, Ionized (arterial) 1.04 mmol/L (1.12-1.30); Carboxyhemoglobin (COHb) 0.7 gm% (0.0-3.0); Hematocrit-ABG 32 % (42.0-52.0); Hemoglobin (Hb) 10.8 g/dL (14.0-18.0); Potassium - ABG Lab 3.54 mmol/L (3.70-5.30); pH, Arterial 7.547 (7.35-7.45)
[2023-07-10 01:54] LABS: SARS-CoV-2 NAA Rapid Test Not Detected (NotDetected)
[2023-07-10 02:09] LABS: Legionella Urinary Ag Negative (Negative); Strep pneumo Urine Ag NEGATIVE (NEGATIVE)
[2023-07-10] MEDS: cefTRIAXone\\ROCEPHIN 1 GM in Sodium Chloride 0.9% 100 ML IVPB SCH (02:21)
[2023-07-10] MEDS: Morphine 2 MG/ML VIAL SLOW IVP PRN ×3 (02:38→21:51)
[2023-07-10] MEDS ORDERED: Metoprolol Tartrate 5 MG (5 mL) VIAL IVP SCH (02:45)
[2023-07-10] MEDS: Doxycycline 100 MG in Sodium Chloride 0.9% 100 ML IVPB SCH ×2 (03:01→15:51)
[2023-07-10 06:06] LABS: Anion Gap 11 mmol/L (10-20); BUN (Urea Nitrogen) 10 mg/dL (8.4-25.7); Calc. Creatinine Clearance 141 mL/min (70-130); Carbon Dioxide 22 mmol/L (23-31); Chloride 101 mmol/L (98-107); Estimated GFR 118; Glucose 93 mg/dL (80-115); Potassium 3.6 mmol/L (3.5-5.1); Sodium 130 mmol/L (136-145)
[2023-07-10 06:09] LABS: Calcium 6.8 mg/dL (7.8-10.44)
[2023-07-10 08:43] LABS: Magnesium 1.7 mg/dL (1.6-2.6)
[2023-07-10] MEDS: Potassium Chloride 20 MEQ TAB PO SCH ×2 (09:49→15:51)
[2023-07-10] MEDS: Megestrol Acetate 800 MG/20 ML UDCUP PO SCH (09:49)
[2023-07-10] MEDS: Sodium Chloride 1 GM TAB PO SCH ×3 (09:49→21:35)
[2023-07-10] MEDS: Lansoprazole 15 MG/5 ML (BATCHED)UDCUP PER TUBE SCH (11:15)
[2023-07-10] MEDS ORDERED: Furosemide 20 MG (2 mL) VIAL SLOW IVP SCH (14:15)
[2023-07-10] MEDS: Metoprolol Tartrate 25 MG TAB PO SCH ×2 (18:26→21:28)
[2023-07-10] MEDS ORDERED: Furosemide 40 MG (4 mL) VIAL ONE (18:36)
[2023-07-10] MEDS ORDERED: Ipratropium/Albuterol 3 ML NEB NEB SCH (18:40)
[2023-07-10] MEDS ORDERED: Ipratropium/Albuterol 3 ML NEB ONE (18:41)
[2023-07-10] MEDS ORDERED: methylPREDNISolone Sod Succ/PF 125 MG/2 ML VIAL IVP SCH (18:55)
[2023-07-10] MEDS ORDERED: Magnesium 2 GM/50 ML(in water) 2 GM in Premix 1 BAG IVPB SCH (19:00)
[2023-07-10 19:04] LABS: Actual Bicarbonate (HCO3a) 22.7 mEq/L (22-28); Base Excess (BEa) 0.6 mEq/L (-2.0 to +3.0); CO2 Tension 28.1 mmHg (35.0-45.0); Calcium, Ionized (arterial) 1.04 mmol/L (1.12-1.30); Carboxyhemoglobin (COHb) 0.4 gm% (0.0-3.0); Hematocrit-ABG 30 % (42.0-52.0); Hemoglobin (Hb) 10.2 g/dL (14.0-18.0); Potassium - ABG Lab 3.98 mmol/L (3.70-5.30); pH, Arterial 7.525 (7.35-7.45)
[2023-07-10 19:06] LABS: O2 Tension (PaO2), arterial 43.3 mmHg (> 80.0)
[2023-07-10 19:07] LABS: ALV-art Gradient 563.275 mmHg (0-20); Puncture Site LRA
[2023-07-10] MEDS ORDERED: Furosemide 40 MG (4 mL) VIAL SLOW IVP SCH (19:40)
[2023-07-10] MEDS: Mirtazapine 15 MG TAB PO SCH (21:35)
[2023-07-10] MEDS: Artificial Tear Sol 15 ML BOT EA EYE PRN (21:52)
[2023-07-10] MEDS ORDERED: Ipratropium/Albuterol 3 ML NEB NEB PRN (23:55)
[2023-07-11] MEDS: Morphine 2 MG/ML VIAL SLOW IVP PRN ×2 (01:35→09:28)
[2023-07-11] MEDS: cefTRIAXone\\ROCEPHIN 1 GM in Sodium Chloride 0.9% 100 ML IVPB SCH (03:15)
[2023-07-11] MEDS: Doxycycline 100 MG in Sodium Chloride 0.9% 100 ML IVPB SCH ×2 (03:16→15:01)
[2023-07-11 05:05] LABS: #Monocytes 0.1 thou/uL (0.11-0.59); #Neutrophils 11.9 thou/uL (1.40-6.50); %Basophils 0.1 % (0.0-1.0); %Eosinophils 0.1 % (0.0-10.0); %Lymphocytes 2.1 % (21.0-51.0); %Monocytes 1.1 % (0.0-10.0); Hematocrit 27.3 % (42.0-52.0); Hemoglobin 9.3 g/dL (14.0-18.0); Mean Corpuscular HGB CONC 34.1 g/dL (32.0-36.0); Mean Corpuscular Hemoglobin 30.5 pg (27.0-31.0); Mean Corpuscular Volume 89.5 fl (78.0-98.0); Platelet Count 206 10x3/uL (130-400); RBC Distribution Width 15.9 % (11.5-14.5); Red Blood Cell (RBC) Count 3.05 mill/uL (4.70-6.10); White Blood Cell (WBC) Count 12.4 10x3/uL (4.8-10.8)
[2023-07-11 05:35] LABS: ALT (SGPT) 62 U/L (8-55); AST (SGOT) 56 U/L (5-34); Albumin 2.4 g/dL (3.4-4.8); Alkaline Phosphatase 124 U/L (40-110); Anion Gap 14 mmol/L (10-20); BUN (Urea Nitrogen) 17 mg/dL (8.4-25.7); Bilirubin, Total 0.5 mg/dL (0.2-1.2); Calc. Creatinine Clearance 135 mL/min (70-130); Calcium 7.4 mg/dL (7.8-10.44); Carbon Dioxide 23 mmol/L (23-31); Chloride 101 mmol/L (98-107); Estimated GFR 116; Globulin 2.4 g/dL (2.4-3.5); Glucose 92 mg/dL (80-115); Potassium 4.6 mmol/L (3.5-5.1); Protein, Total 4.8 g/dL (5.8-8.1); Sodium 133 mmol/L (136-145)
[2023-07-11] MEDS: Furosemide 20 MG (2 mL) VIAL SLOW IVP SCH ×2 (05:56→14:58)
[2023-07-11] MEDS: Artificial Tear Sol 15 ML BOT EA EYE PRN ×2 (05:56→14:59)
[2023-07-11] MEDS: Megestrol Acetate 800 MG/20 ML UDCUP PO SCH (09:07)
[2023-07-11] MEDS: Lansoprazole 15 MG/5 ML (BATCHED)UDCUP PER TUBE SCH (09:08)
[2023-07-11] MEDS: Metoprolol Tartrate 25 MG TAB PO SCH ×2 (09:08→21:18)
[2023-07-11] MEDS: Potassium Chloride 20 MEQ TAB PO SCH ×2 (09:08→18:26)
[2023-07-11] MEDS: Sodium Chloride 1 GM TAB PO SCH ×3 (09:08→21:18)
[2023-07-11] MEDS ORDERED: Enoxaparin 40 MG (0.4 mL) SYRINGE SC SCH (09:15)
[2023-07-11 09:45] LABS: O2 Tension (PaO2), arterial 45.4 mmHg (> 80.0)
[2023-07-11 16:06] VITALS: BP 122/96
[2023-07-11] MEDS ORDERED: Vancomycin 1 GM in Sodium Chloride 0.9% 250 ML 250 ML IVPB SCH (17:30)
[2023-07-11] MEDS ORDERED: Vancomycin (BATCH) 1.5 GM in Premix 1 BAG IVPB SCH (17:30)
[2023-07-11] MEDS ORDERED: Cefepime 2 GM in Sodium Chloride 0.9% 100 ML IVPB SCH (17:30)
[2023-07-11] MEDS: Cefepime 2 GM in Sodium Chloride 0.9% 100 ML IVPB SCH (18:27)
[2023-07-11] MEDS: methylPREDNISolone Sod Succ 40 MG VIAL IVP SCH ×2 (18:27→23:39)
[2023-07-11] MEDS: Mirtazapine 15 MG TAB PO SCH (21:18)
[2023-07-12] MEDS: Vancomycin (BATCH) 1.25 GM in Premix 1 BAG IVPB SCH ×2 (04:28→20:13)
[2023-07-12] MEDS ORDERED: Vancomycin (BATCH) 1.5 GM in Premix 1 BAG IVPB SCH (05:00)
[2023-07-12 06:04] LABS: #Monocytes 0.2 thou/uL (0.11-0.59); #Neutrophils 7.8 thou/uL (1.40-6.50); %Eosinophils 0.1 % (0.0-10.0); %Lymphocytes 4.4 % (21.0-51.0); %Monocytes 2.1 % (0.0-10.0); %Neutrophils 92.8 % (42.0-75.0); Hematocrit 25.5 % (42.0-52.0); Hemoglobin 8.7 g/dL (14.0-18.0); Mean Corpuscular HGB CONC 34.1 g/dL (32.0-36.0); Mean Corpuscular Hemoglobin 30.4 pg (27.0-31.0); Mean Corpuscular Volume 89.2 fl (78.0-98.0); Mean Platelet Volume 9.3 fL (7.4-10.4); Platelet Count 228 10x3/uL (130-400); RBC Distribution Width 15.7 % (11.5-14.5); Red Blood Cell (RBC) Count 2.86 mill/uL (4.70-6.10); White Blood Cell (WBC) Count 8.4 10x3/uL (4.8-10.8)
[2023-07-12 06:31] LABS: ALT (SGPT) 52 U/L (8-55); AST (SGOT) 45 U/L (5-34); Albumin 2.3 g/dL (3.4-4.8); Alkaline Phosphatase 114 U/L (40-110); Anion Gap 14 mmol/L (10-20); BUN (Urea Nitrogen) 27 mg/dL (8.4-25.7); Bilirubin, Total 0.5 mg/dL (0.2-1.2); Calc. Creatinine Clearance 116 mL/min (70-130); Calcium 7.4 mg/dL (7.8-10.44); Carbon Dioxide 24 mmol/L (23-31); Chloride 102 mmol/L (98-107); Estimated GFR 110; Globulin 2.1 g/dL (2.4-3.5); Glucose 122 mg/dL (80-115); Potassium 4.5 mmol/L (3.5-5.1); Protein, Total 4.4 g/dL (5.8-8.1); Sodium 135 mmol/L (136-145)
[2023-07-12] MEDS: Furosemide 20 MG (2 mL) VIAL SLOW IVP SCH ×2 (06:38→12:53)
[2023-07-12] MEDS: methylPREDNISolone Sod Succ 40 MG VIAL IVP SCH ×3 (06:38→17:51)
[2023-07-12] MEDS: Cefepime 2 GM in Sodium Chloride 0.9% 100 ML IVPB SCH ×2 (06:39→17:51)
[2023-07-12] MEDS: Potassium Chloride 20 MEQ TAB PO SCH ×2 (09:37→15:35)
[2023-07-12] MEDS: Lansoprazole 15 MG/5 ML (BATCHED)UDCUP PER TUBE SCH (09:38)
[2023-07-12] MEDS: Metoprolol Tartrate 25 MG TAB PO SCH ×2 (09:38→20:14)
[2023-07-12] MEDS: Enoxaparin 40 MG (0.4 mL) SYRINGE SC SCH (09:38)
[2023-07-12] MEDS: Megestrol Acetate 800 MG/20 ML UDCUP PO SCH (09:38)
[2023-07-12] MEDS: Sodium Chloride 1 GM TAB PO SCH ×3 (09:39→20:14)
[2023-07-12] MEDS: Morphine 2 MG/ML VIAL SLOW IVP PRN (15:34)
[2023-07-12] MEDS: Mirtazapine 15 MG TAB PO SCH (20:14)
[2023-07-12] MEDS: Senokot S 8.6-50 MG TAB PO SCH (20:14)
[2023-07-13] MEDS: Morphine 2 MG/ML VIAL SLOW IVP PRN (00:16)
[2023-07-13] MEDS: methylPREDNISolone Sod Succ 40 MG VIAL IVP SCH ×5 (00:18→23:36)
[2023-07-13] MEDS: Vancomycin (BATCH) 1.25 GM in Premix 1 BAG IVPB SCH ×2 (05:24→18:29)
[2023-07-13] MEDS: Cefepime 2 GM in Sodium Chloride 0.9% 100 ML IVPB SCH ×2 (06:32→16:45)
[2023-07-13] MEDS: Furosemide 20 MG (2 mL) VIAL SLOW IVP SCH ×2 (06:33→12:31)
[2023-07-13] MEDS: Megestrol Acetate 800 MG/20 ML UDCUP PO SCH (08:16)
[2023-07-13] MEDS: Potassium Chloride 20 MEQ TAB PO SCH ×2 (08:16→16:44)
[2023-07-13] MEDS: Lansoprazole 15 MG/5 ML (BATCHED)UDCUP PER TUBE SCH (08:16)
[2023-07-13] MEDS: Enoxaparin 40 MG (0.4 mL) SYRINGE SC SCH (08:16)
[2023-07-13] MEDS: Metoprolol Tartrate 25 MG TAB PO SCH ×2 (08:17→21:23)
[2023-07-13] MEDS: Senokot S 8.6-50 MG TAB PO SCH ×2 (08:17→21:23)
[2023-07-13] MEDS: Sodium Chloride 1 GM TAB PO SCH ×3 (08:17→21:23)
[2023-07-13] MEDS: Mirtazapine 15 MG TAB PO SCH (21:23)
[2023-07-14] MEDS: Cefepime 2 GM in Sodium Chloride 0.9% 100 ML IVPB SCH ×2 (05:38→17:27)
[2023-07-14] MEDS: Vancomycin (BATCH) 1.25 GM in Premix 1 BAG IVPB SCH ×2 (05:38→17:27)
[2023-07-14] MEDS: methylPREDNISolone Sod Succ 40 MG VIAL IVP SCH ×4 (05:39→20:25)
[2023-07-14] MEDS: Furosemide 20 MG (2 mL) VIAL SLOW IVP SCH ×2 (05:39→12:38)
[2023-07-14] MEDS: Enoxaparin 40 MG (0.4 mL) SYRINGE SC SCH (08:07)
[2023-07-14] MEDS: Metoprolol Tartrate 25 MG TAB PO SCH ×2 (08:07→20:24)
[2023-07-14] MEDS: Megestrol Acetate 800 MG/20 ML UDCUP PO SCH (08:07)
[2023-07-14] MEDS: Lansoprazole 15 MG/5 ML (BATCHED)UDCUP PER TUBE SCH (08:07)
[2023-07-14] MEDS: Sodium Chloride 1 GM TAB PO SCH ×3 (08:08→20:25)
[2023-07-14] MEDS: Potassium Chloride 20 MEQ TAB PO SCH (08:08)
[2023-07-14] MEDS: Senokot S 8.6-50 MG TAB PO SCH ×2 (08:08→20:25)
[2023-07-14 17:30] LABS: Vancomycin, Trough 23.8 ug/mL
[2023-07-14] MEDS: Morphine 2 MG/ML VIAL SLOW IVP PRN (20:43)
[2023-07-14] MEDS: Vancomycin 1 GM in Premix 1 BAG IVPB SCH (23:59)
[2023-07-15] MEDS: Cefepime 2 GM in Sodium Chloride 0.9% 100 ML IVPB SCH (05:13)
[2023-07-15] MEDS: Enoxaparin 40 MG (0.4 mL) SYRINGE SC SCH (08:43)
[2023-07-15] MEDS: Megestrol Acetate 800 MG/20 ML UDCUP PO SCH (08:43)
[2023-07-15] MEDS: methylPREDNISolone Sod Succ 40 MG VIAL IVP SCH (08:43)
[2023-07-15] MEDS: Metoprolol Tartrate 25 MG TAB PO SCH (08:43)
[2023-07-15] MEDS: Senokot S 8.6-50 MG TAB PO SCH (08:43)
[2023-07-15] MEDS: Sodium Chloride 1 GM TAB PO SCH (08:44)
[2023-07-15] MEDS: Potassium Chloride 20 MEQ TAB PO SCH (08:44)
[2023-07-15] MEDS: Lansoprazole 15 MG/5 ML (BATCHED)UDCUP PER TUBE SCH (08:50)
[2023-07-15] MEDS ORDERED: Furosemide 20 MG (2 mL) VIAL SLOW IVP SCH (09:00)
[2023-07-15 11:47] VITALS: TEMP 97.8
[2023-07-15] MEDS: Vancomycin 1 GM in Premix 1 BAG IVPB SCH (12:52)
[2023-07-15] MEDS: Morphine 2 MG/ML VIAL SLOW IVP PRN (15:20)
== END 2023-07-15 16:05 | disposition hospice, home (50) | DRG 640 ==
LOC: MSONC 22:45 → 2NO 07-09 22:56 → IMCU/EMU 07-10 20:48
PROVIDERS: ADMIT Family Medicine; ATTEND Emergency Medicine
PROC: 0DH63UZ Insertion of Feeding Device into Stomach, Percutaneous Approach (ICD-10-PCS; principal; 2023-07-08)
PROC: 4A133R1 Monitoring of Arterial Saturation, Peripheral, Percutaneous Approach (ICD-10-PCS; 2023-07-09)
PROC: 5A0955A Assistance with Respiratory Ventilation, Greater than 96 Consecutive Hours, High Flow/Velocity Cannula (ICD-10-PCS; 2023-07-10)
DX: E43 Unspecified severe protein-calorie malnutrition (principal); I50.23 Acute on chronic systolic (congestive) heart failure; J96.01 Acute respiratory failure with hypoxia; C25.9 Malignant neoplasm of pancreas, unspecified; Z68.1 Body mass index [BMI] 19.9 or less, adult; R64 Cachexia; C64.1 Malignant neoplasm of right kidney, except renal pelvis; E87.1 Hypo-osmolality and hyponatremia; C34.90 Malignant neoplasm of unspecified part of unspecified bronchus or lung; R18.8 Other ascites; Z66 Do not resuscitate; Z51.5 Encounter for palliative care; E16.2 Hypoglycemia, unspecified; E78.5 Hyperlipidemia, unspecified; R62.7 Adult failure to thrive; D64.9 Anemia, unspecified; K26.9 Duodenal ulcer, unspecified as acute or chronic, without hemorrhage or perforation; I11.0 Hypertensive heart disease with heart failure; E83.42 Hypomagnesemia; Z79.82 Long term (current) use of aspirin; Z79.899 Other long term (current) drug therapy; Z85.46 Personal history of malignant neoplasm of prostate; Z98.890 Other specified postprocedural states; Z87.891 Personal history of nicotine dependence; R00.0 Tachycardia, unspecified; Z11.52 Encounter for screening for COVID-19
CPT/HCPCS: 36415; 36416; 36600; 71045; 71275; 80048; 80053; 80202; 82565; 82805; 83605; 83735; 83880; 84100; 84145; 85025; 87081; 87449; 87899; 93005; 93010; 93306; 94640; J0692; J0696; J1650; J1940; J2272; J2704; J2920; J2930; J3010; J3370; J3370-JW; J3475; J3490; J7042; J7620; J7999; Q9967